=== PATIENT | male | born 1965 | race Hispanic/Latino ===

== ENCOUNTER 2017-03-23 13:58 | Inpatient (IN) | payer MEDICARE, OTHER ==
[~2017-03-23] VITALS: Ht 167.6 cm; Wt 87.2 kg
[~2017-03-23 13:58] MED LIST: ASPIRIN325 MG PO; ATENOLOL50 MG PO; CLONIDINE0.1 MG PO; D3400 UNI2 PO; DIPHENHYDRAM25 M2 PO; LASIX 40 MG TAB40 MG PO; LEVEMIR1000 UNITS SC; LISINOPRIL20 MG PO; LOSARTAN POT50 MG PO; NOVOLOG FLEXPEN SC; RENALTAB ZN PO; RENVELA800 MG PO; SENSIPAR30 MG PO; ZOFRAN ODT4 MG PO
[2017-03-23] MEDS ORDERED: RENVELA800 MG PO (14:57)
[2017-03-23] MEDS ORDERED: VITAMIN D31000 UNI1 PO (14:58)
[2017-03-23] MEDS ORDERED: ASPIRIN325 MG PO (14:58)
[2017-03-23] MEDS ORDERED: CETIRIZINE10 MG PO (15:02)
[2017-03-23] MEDS ORDERED: NOVOLOG FL100 UNIT/M SC (15:03)
[2017-03-23] MEDS ORDERED: LEVEMIR100 UNIT/M SC ×2 (15:05→15:06)
[2017-03-23 15:08] LABS: HEMATOCRIT 36.5 % (39.0-50.0); HEMOGLOBIN 12.1 g/dl (14.0-18.0); IMMATURE GRANULOCYTES 0.5 % (0.0-1.0); MEAN CELL VOLUME 87.7 fL CALC (80.0-100.0); MEAN CORPUSCULAR HGB 29.1 pG CALC (26.0-32.0); MEAN CORPUSCULAR HGB CONC 33.2 g/L CALC (32.0-36.0); NEUT# 9.57 thou/uL (1.82-7.42); RED BLOOD COUNT 4.16 mill/uL (4.70-6.10); RED CELL DISTRI WIDTH 12.9 % (11.5-15.5)
[2017-03-23] MEDS ORDERED: SENSIPAR30 MG PO (15:15)
[2017-03-23] MEDS ORDERED: [UNRECOGNIZED DRUG - CODE] PO (15:16)
[2017-03-23] MEDS ORDERED: PRAVASTATIN SOD20 MG PO (15:16)
[2017-03-23 15:52] LABS: ALBUMIN 4.7 g/dL (3.2-5.0); BILIRUBIN, TOTAL 0.6 mg/dL (0.0-1.4); CALCIUM 10.3 mg/dL (8.4-10.2); POTASSIUM 4.3 mmol/l (3.5-5.1); TOTAL PROTEIN 8.2 g/dL (6.3-8.2)
[2017-03-23 15:54] LABS: CREATININE 6.9 mg/dL (0.7-1.3)
[2017-03-23 20:25] VITALS: BP 121/81
[2017-03-23 23:10] VITALS: BP 138/79
[2017-03-24 03:50] VITALS: BP 162/81; BP 162/87
[2017-03-24 07:47] VITALS: BP 150/83
[2017-03-24] MEDS ORDERED: LEVAQUIN250 MG PO (11:55)
[2017-03-24 12:20] VITALS: BP 154/83
[2017-03-24 15:37] VITALS: BP 151/84
== END 2017-03-24 18:35 | disposition home or self-care (01) | DRG 193 ==
LOC: ENPENDDIS → ED 13:58 → ED-I 19:10 → ED 19:19 → MS2 19:20
PROVIDERS: Emergency Medicine; ADMIT Internal Medicine; ATTEND Internal Medicine
DX: J18.9 Pneumonia, unspecified organism (principal); N18.6 End stage renal disease; E11.22 Type 2 diabetes mellitus with diabetic chronic kidney disease; Z99.2 Dependence on renal dialysis; Z79.4 Long term (current) use of insulin

== ENCOUNTER 2021-02-25 10:03 | Emergency (ER) | payer MEDICARE, OTHER ==
[~2021-02-25] VITALS: Ht 167.6 cm; Wt 85.0 kg
[~2021-02-25 10:03] MED LIST changes: +CETIRIZINE10 MG PO; +LEVAQUIN250 MG PO; +LEVEMIR100 UNIT/M SC; +NOVOLOG FL100 UNIT/M SC; +PRAVASTATIN SOD20 MG PO; +VITAMIN D31000 UNI1 PO; +[UNRECOGNIZED DRUG - CODE] PO
[2021-02-25] MEDS ORDERED: NORVASC5 M1 PO (10:52)
[2021-02-25 11:16] LABS: HEMOGLOBIN 13.4 g/dl (14.0-18.0); IMMATURE GRANULOCYTES 0.5 % (0.0-5.0); MEAN CELL VOLUME 87.3 fL CALC (80.0-100.0); MEAN CORPUSCULAR HGB 27.5 pG CALC (26.0-32.0); MEAN CORPUSCULAR HGB CONC 31.5 g/dL CAL (32.0-36.0); NEUT# 12.46 thou/uL (1.82-7.42); RED BLOOD COUNT 4.88 mill/uL (4.70-6.10); RED CELL DISTRI WIDTH 12.7 % (11.5-15.5)
[2021-02-25 11:18] LABS: HEMATOCRIT 42.6 % (39.0-50.0)
[2021-02-25 11:27] LABS: ALBUMIN 4.2 g/dL (3.2-5.0); ALKALINE PHOSPHATASE 89 u/l (38-126); BILIRUBIN, TOTAL 0.5 mg/dL (0.0-1.4); CARBON DIOXIDE 27 mmol/l (22-30); CHLORIDE 88 mmol/l (95-108); SGOT/AST 40 u/l (17-59); TOTAL PROTEIN 6.7 g/dL (6.3-8.2)
[2021-02-25 11:29] LABS: ANION GAP 19 (6-22 (CALC)); BUN 49 mg/dL (9-20); BUN/CREATININE RATIO 8 (12-20 (CALC)); GFR 9 ML/MIN (>=60 (CALC)); GFR FOR AFR.AMER. 11 ML/MIN (>=60 (CALC)); POTASSIUM 5.4 mmol/l (3.5-5.1); SODIUM 129 mmol/l (137-146)
[2021-02-25 11:30] LABS: CREATININE 6.3 mg/dL (0.7-1.3)
[2021-02-25 11:38] LABS: MYOGLOBIN 252 ng/mL (0 - 121)
[2021-02-25 12:05] VITALS: BP 146/66
== END 2021-02-25 12:09 | disposition home or self-care (01) ==
LOC: ED 10:03
PROVIDERS: Emergency Medicine
DX: R53.1 Weakness (principal); I12.0 Hypertensive chronic kidney disease with stage 5 chronic kidney disease or end stage renal disease; E11.22 Type 2 diabetes mellitus with diabetic chronic kidney disease; N18.6 End stage renal disease; Z99.2 Dependence on renal dialysis; Z79.4 Long term (current) use of insulin; Z20.822 Contact with and (suspected) exposure to COVID-19

== ENCOUNTER 2022-04-21 07:20 | Emergency (ER) | payer MEDICARE, OTHER ==
[2022-04-21] VITALS (36 sets, daily range): BP systolic 82–202; BP diastolic 48–112
[~2022-04-21] VITALS: Ht 167.6 cm; Wt 81.0 kg
[~2022-04-21 07:20] MED LIST changes: +NORVASC5 M1 PO
[2022-04-21 07:54] LABS: HEMATOCRIT 38.7 % (39.0-50.0); HEMOGLOBIN 12.3 g/dl (14.0-18.0); IMMATURE GRANULOCYTES 0.7 % (0.0-5.0); MEAN CELL VOLUME 85.6 fL CALC (80.0-100.0); MEAN CORPUSCULAR HGB 27.2 pG CALC (26.0-32.0); MEAN CORPUSCULAR HGB CONC 31.8 g/dL CAL (32.0-36.0); NEUT# 22.59 thou/uL (1.82-7.42); RED BLOOD COUNT 4.52 mill/uL (4.70-6.10); RED CELL DISTRI WIDTH 14.3 % (11.5-15.5)
[2022-04-21 08:05] LABS: ALBUMIN 3.4 g/dL (3.2-5.0); BILIRUBIN, TOTAL 0.6 mg/dL (0.0-1.4); TOTAL PROTEIN 5.9 g/dL (6.3-8.2)
[2022-04-21 15:18] LABS: ALBUMIN 3.5 g/dL (3.2-5.0); BILIRUBIN, TOTAL 0.8 mg/dL (0.0-1.4); TOTAL PROTEIN 6.1 g/dL (6.3-8.2)
[2022-04-21 15:20] LABS: CREATININE 13.9 mg/dL (0.7-1.3)
[2022-04-21 15:25] LABS: POTASSIUM 6.7 mmol/l (3.5-5.1)
--- NOTE | 2022-04-22 07:58 | NUR ---
PRELIMINARY BLOOD CULTURES SHOW GRAM POSITIVE COCCI IN 4/4 VIALS. REPORTED TO PT'S NURSE COLLIN @ [facility]. FAXED TO [phone]. WILL F/U WITH FINALS.
== END 2022-04-21 17:47 | disposition short-term general hospital (02) ==
LOC: ED 07:20
PROVIDERS: Family Medicine
DX: T82.7XXA Infection and inflammatory reaction due to other cardiac and vascular devices, implants and grafts, initial encounter (principal); A41.9 Sepsis, unspecified organism; I21.4 Non-ST elevation (NSTEMI) myocardial infarction; R65.20 Severe sepsis without septic shock; T82.590A Other mechanical complication of surgically created arteriovenous fistula, initial encounter; E11.22 Type 2 diabetes mellitus with diabetic chronic kidney disease; I12.0 Hypertensive chronic kidney disease with stage 5 chronic kidney disease or end stage renal disease; N18.6 End stage renal disease; Y83.2 Surgical operation with anastomosis, bypass or graft as the cause of abnormal reaction of the patient, or of later complication, without mention of misadventure at the time of the procedure; Z99.2 Dependence on renal dialysis; Z79.4 Long term (current) use of insulin
CPT/HCPCS: J1650